=== PATIENT | female | born 1970 | race African-American/Black ===

== ENCOUNTER 2018-10-24 20:07 | Emergency (ER) | payer OTHER, MEDICAID ==
[~2018-10-24] VITALS: Ht 162.6 cm; Wt 72.6 kg
[2018-10-24] MEDS ORDERED: ROBAXIN500 MG PO (21:08)
[2018-10-24] MEDS ORDERED: IBUPROFEN 800800 M1 PO (21:08)
[2018-10-24 21:18] VITALS: BP 157/97
== END 2018-10-24 21:18 | disposition home or self-care (01) ==
LOC: M.ERS 20:07
DX: S16.1XXA Strain of muscle, fascia and tendon at neck level, initial encounter (principal); S46.812A Strain of other muscles, fascia and tendons at shoulder and upper arm level, left arm, initial encounter; Z90.49 Acquired absence of other specified parts of digestive tract; Z90.710 Acquired absence of both cervix and uterus; Z98.890 Other specified postprocedural states; Z88.0 Allergy status to penicillin; V49.59XA Passenger injured in collision with other motor vehicles in traffic accident, initial encounter; Y93.89 Activity, other specified; Y92.89 Other specified places as the place of occurrence of the external cause; Y99.8 Other external cause status